=== PATIENT | male | born 1955 | race African-American/Black ===

== ENCOUNTER 2017-06-04 14:16 | Emergency (ER) | payer OTHER ==
[~2017-06-04] VITALS: Ht 175.3 cm; Wt 62.0 kg
[2017-06-04 14:17] VITALS: Ht 175.3 cm; Wt 62.0 kg
[2017-06-04] MEDS ORDERED: SOD CHLORIDE 0.9% 1,000 ML IV STA (14:17)
[2017-06-04 14:50] LABS: BASOPHILS % 0.6 % (0.0-2.0); EOSINOPHILS % 0.2 % (0.0-7.0); HEMATOCRIT 40.4 % (42.0-52.0); HEMOGLOBIN 12.3 g/dl (14.0-18.0); LYMPHOCYTES # 1.8 10^3/ul (0.8-2.9); LYMPHOCYTES % 33.6 % (15.0-51.0); MEAN CORPUSCULAR HEMOGLOBIN 24.2 pg (29.0-33.0); MEAN CORPUSCULAR HGB CONC 30.4 g/dl (32.0-37.0); MEAN CORPUSCULAR VOLUME 79.5 fl (82.0-101.0); MEAN PLATELET VOLUME 10.2 fl (7.4-10.4); MONOCYTE # 0.4 10^3/ul (0.3-0.9); MONOCYTES % 7.9 % (0.0-11.0); NEUTROPHIL # 3.1 10^3/ul (1.6-7.5); NEUTROPHILS % 57.3 % (39.0-77.0); PLATELET COUNT 233 10^3/UL (140-415); RED BLOOD COUNT 5.08 10^6/ul (4.70-6.10); RED CELL DISTRIBUTION WIDTH 14.5 % (11.5-14.5); WHITE BLOOD COUNT 5.4 10^3/ul (4.8-10.8)
[2017-06-04 15:16] LABS: INR 1.02; PROTIME 13.4 Sec (12.2-14.2)
[2017-06-04 15:17] LABS: PARTIAL THROMBOPLASTIN TIME 27.7 Sec (25.0-35.0)
--- NOTE | 2017-06-04 15:26 | RADRPT ---
PROCEDURE: XR Chest. CLINICAL INDICATION: chest pain, syncope TECHNIQUE: Single frontal view of the chest was obtained COMPARISON: None FINDINGS: The heart and mediastinum are within normal limits. The lungs are clear. There is no pleural effusion or pneumothorax. RPTAT: AA IMPRESSION: No acute disease. .Conrad Loja MD, MD Date Time Electronically viewed and signed by .Conrad Loja MD, on 06/04/2017 15:26 .S/
[2017-06-04 15:29] LABS: ANION GAP 23 (8-16); BLOOD UREA NITROGEN 37 mg/dl (7-20); CALCIUM 10.5 mg/dl (8.4-10.2); CARBON DIOXIDE 22 mmol/L (21-31); CHLORIDE 95 mmol/L (97-110); CREATININE 1.92 mg/dl (0.61-1.24); GLUCOSE 119 mg/dl (70-220); POTASSIUM 3.9 mmol/L (3.5-5.1); SODIUM 136 mmol/L (135-144)
--- NOTE | 2017-06-04 15:31 | ERA ---
ER Documentation Chief Complaint Date/Time DATE: 06/04/17 TIME: 15:29 Chief Complaint WEAK AND DIZZY HPI This is a 61-year-old male brought in via EMS after feeling weak. The patient states that he has not had any appetite for several days and has not been eating well. He felt weak today and prior to walking into his apartment he felt weak and laid down on the ground. He did not have an episode of syncope and did not hit his head. He denies any motor weakness or slurred speech, no chest pain or shortness of breath. He just feels tired and weak. He denies any hematemesis or melena. ROS All systems reviewed and are negative except as per history of present illness. 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 Eyes: Pupils equally reactive, EOM intact ENT: Dry mucous membranes Neck: Supple, no lymphadenopathy Respiratory: Lungs clear bilaterally, no distress Cardiovascular: RRR, no murmurs, rubs, or gallops Abdominal: Soft, non-tender, non-distended, no peritoneal signs : Deferred MSK: No edema, no unilateral swelling, 5/5 strength Neurologic: Alert and oriented, moving all extremities, normal speech, no focal weakness, no cerebellar signs Skin: No rash Psych: Normal mood Result Diagram: 06/04/17 1430 06/04/17 1430 Results 24 hrs Laboratory Tests Test 06/04/17 14:30 06/04/17 14:39 7/25/17 16:30 06/04/17 16:38 White Blood Count 5.410^3/ul Red Blood Count 5.0810^6/ul Hemoglobin 12.3g/dl Hematocrit 40.4% Mean Corpuscular Volume 79.5fl Mean Corpuscular Hemoglobin 24.2pg Mean Corpuscular Hemoglobin Concent 30.4g/dl Red Cell Distribution Width 14.5% Platelet Count 67212^3/UL Mean Platelet Volume 10.2fl Neutrophils % 57.3% Lymphocytes % 33.6% Monocytes % 7.9% Eosinophils % 0.2% Basophils % 0.6% Nucleated Red Blood Cells % 0.0/100WBC Neutrophils # 3.110^3/ul Lymphocytes # 1.810^3/ul Monocytes # 0.410^3/ul Eosinophils # 0.010^3/ul Basophils # 0.010^3/ul Nucleated Red Blood Cells # 0.010^3/ul Prothrombin Time 13.4Sec Prothrombin Time Ratio 1.0 INR International Normalized Ratio 1.02 Activated Partial Thromboplast Time 27.7Sec Sodium Level 136mmol/L Potassium Level 3.9mmol/L Chloride Level 95mmol/L Carbon Dioxide Level 22mmol/L Anion Gap 23 Blood Urea Nitrogen 37mg/dl Creatinine 1.92mg/dl Glucose Level 119mg/dl Calcium Level 10.5mg/dl Troponin I 0.042ng/ml Free Thyroxine Index 2.86ug/ml Thyroxine (T4) 9.6ug/dl Triiodothyronine (T3) Uptake 29.8% HIV (1&2) Antibody NEGATIVE Bedside Glucose 104mg/dL Urine Color YELLOW Urine Clarity SLIGHTLY CLOUDY Urine pH 6.0 Urine Specific [place] 1.017 Urine Ketones NEGATIVEmg/dL Urine Nitrite NEGATIVEmg/dL Urine Bilirubin NEGATIVEmg/dL Urine Urobilinogen NEGATIVEmg/dL Urine Leukocyte Esterase NEGATIVELeu/ul Urine Microscopic RBC 0/HPF Urine Microscopic WBC 2/HPF Urine Hemoglobin NEGATIVEmg/dL Urine Glucose NEGATIVEmg/dL Urine Total Protein 1+mg/dl Bedside Urine pH (LAB) 6.0 Bedside Urine Protein (LAB) 2+ Bedside Urine Glucose (UA) Negative Bedside Urine Ketones (LAB) Negative Bedside Urine Blood Negative Bedside Urine Nitrite (LAB) Negative Bedside Urine Leukocyte Esterase (L Negative Current Medications Medications (Trade) Dose Ordered Sig/Kamille Route PRN Reason Start Time Stop Time Status Last Admin Dose Admin Sodium Chloride (NS) 1,000 ml @ 1,000 mls/hr Q1H STAT IV 06/04/17 14:17 06/04/17 15:16 DC 06/04/17 14:53 Procedures/MDM EKG, MONITORS, & DIAGNOSTIC IMAGING: EKG: I reviewed and interpreted a 12-lead EKG. Rhythm: Normal sinus rhythm Ectopy: None Intervals: No abnormalities ST segments: No elevations or depressions T waves: No contiguous inversions Chest x-ray: I reviewed and interpreted a 1 view of the chest Mediastinum: No enlargement Cardiac silhouette: No cardiomegaly Airspace: Clear lung gamino bilaterally without evidence of pneumothorax Bones: No evidence of fracture LAB INTERPRETATION: Renal insufficiency, no baseline, no UTI, remainder of the labs are unrevealing MEDICAL DECISION MAKING: The patient presents with generalized weakness that is nonspecific. He states that he felt generally weak and laid himself on the ground. He does not have any evidence of trauma. He has a nonfocal neurologic exam without evidence of stroke. No evidence of ACS. This is possibly related to dehydration the patient will benefit from fluids. Will benefit from laboratory testing and thyroid testing. HIV testing also appropriate, patient verbally consented. ER COURSE: The patient is a dramatic improvement of his symptoms he is resting comfortably he is tolerating oral intake and he is ambulatory without difficulty. He states subjective improvement. He was advised that he needs to follow-up with primary care physician and have repeat testing of his kidney function. The patient verbalized understanding. He is safe for discharge. I kept the patient and/or family informed of laboratory and diagnostic imaging results throughout the emergency room course. DISPOSITION PLAN: We discussed follow up with the patient's primary care doctor within 24 to 48 hours as needed. We also discussed return to the emergency room for worsening symptoms or worsening condition. Outpatient referral: [None required] Departure Diagnosis: Primary Impression: Acute renal insufficiency Additional Impression: Dehydration Condition: Stable MARGARITO BREWER MD Jun 04, 2017 15:31
[2017-06-04 15:43] LABS: TROPONIN-I 0.042 ng/ml (0.00-0.12)
[2017-06-04 16:10] LABS: T3 UPTAKE 29.8 % (23.5-40.5)
[2017-06-04 16:34] LABS: URINE BLOOD (Dip) POC Negative (NEGATIVE)
[2017-06-04 17:11] LABS: ADD UMIC YES; UR ASCORBIC ACID NEGATIVE (NEGATIVE); UR BILIRUBIN (Dip) NEGATIVE (NEGATIVE); UR BLOOD (Dip) NEGATIVE (NEGATIVE); UR CLARITY SLIGHTLY CLOUDY (CLEAR); UR COLOR YELLOW (YELLOW); UR GLUCOSE (Dip) NEGATIVE (NEGATIVE); UR KETONES (Dip) NEGATIVE (NEGATIVE); UR LEUKOCYTE ESTERASE (Dip) NEGATIVE Leu/ul (NEGATIVE); UR NITRITE (Dip) NEGATIVE (NEGATIVE); UR RBC 0 /HPF (0-5); UR SPECIFIC GRAVITY (Dip) 1.017 (1.003-1.030); UR TOTAL PROTEIN (Dip) 1+ mg/dl (NEGATIVE); UR UROBILINOGEN (Dip) NEGATIVE (NEGATIVE)
[2017-06-04 17:19] VITALS: BP 132/84; PULSE 78; RESP 16; TEMP 98
== END 2017-06-04 17:21 | disposition home or self-care (01) ==
LOC: E/R 14:16
DX: N28.9 Disorder of kidney and ureter, unspecified (principal); E86.0 Dehydration; F17.210 Nicotine dependence, cigarettes, uncomplicated; R07.9 Chest pain, unspecified; Z85.028 Personal history of other malignant neoplasm of stomach
CPT/HCPCS: 71010; 80048; 81001; 82962; 84436; 84479; 84484; 85025; 85610; 85730; 86703; 93005; J7030; 81003

== ENCOUNTER 2018-07-25 13:40 | Emergency (ER) | END 2018-07-25 15:59 | disposition home or self-care (01) ==